=== PATIENT | female | born 1985 | race Caucasian/White ===

== ENCOUNTER 2016-08-05 19:58 | Observation (INO) | payer SELFPAY ==
[2016-08-05 20:40] LABS: BASOPHIL# 0.1 X 10^3uL (0.0-0.1); BASOPHILS 0.7 % (0.0-2.0); EOSINOPHILS 2.2 % (0.0-6.0); EOSINOPHILS# 0.3 X 10^3uL (0.0-0.4); HEMATOCRIT 37.9 % (36.0-48.0); LYMPHOCYTES 25.4 % (20.0-40.0); LYMPHOCYTES# 3.3 X 10^3uL (0.8-3.8); MEAN CELL VOLUME 87.7 fL (84.0-102.0); MEAN CORPUS. HGB CONCENTRATION 34.2 g/dL (32.0-36.0); MEAN PLATELET VOLUME 7.3 fL (7.4-10.4); MONOCYTES 5.6 % (2.0-10.0); MONOCYTES# 0.7 X 10^3uL (0.2-1.0); NEUTROPHILS 66.1 % (54.0-75.0); NEUTROPHILS# 8.5 X 10^3uL (2.6-6.7); PLATELET COUNT 474 X 10^3uL (130-440); RED BLOOD COUNT 4.33 X 10^6uL (4.20-6.10); RED CELL DISTRIBUTION WIDTH 12.3 % (11.5-14.5); WHITE BLOOD COUNT 12.9 X 10^3uL (3.9-10.7)
[2016-08-05 20:49] LABS: ALBUMIN 4.5 g/dL (3.5-5.0); ALKALINE PHOSPHATASE 80 U/L (38-126); ALT 38 U/L (9-52); AST 18 U/L (14-36); BILIRUBIN, DIRECT 0.4 mg/dL (0.0-0.4); BILIRUBIN, TOTAL 0.4 mg/dL (0.2-1.3); BLOOD UREA NITROGEN 12 mg/dL (7-17); CALCIUM 9.4 mg/dL (8.4-10.2); CHLORIDE 104 mmol/L (98-107); CREATININE 0.5 mg/dL (0.5-1.0); EST GLOMERULAR FILTRATION RATE > 60 mL/min; GLUCOSE 131 mg/dL (70-100); LIPASE 28 U/L (23-300); POTASSIUM 3.6 mmol/L (3.5-5.1); SODIUM 138 mmol/L (137-145)
[2016-08-05] MEDS ORDERED: HYDROmorphone HCL 1 MG/ML SYR ONE (20:58)
[2016-08-05] MEDS ORDERED: KETOROLAC TROMETHAMINE 30 MG/ML VIAL ONE (20:58)
[2016-08-05] MEDS ORDERED: ONDANSETRON HCL 4 MG/2 ML VIAL ONE (20:58)
[2016-08-05] MEDS ORDERED: HOME MEDICATION LIST NEEDED 1 EA EACH MISC ONE (22:02)
--- NOTE | 2016-08-05 22:17 | CT REPORT ---
EXAMINATION: CT OF THE ABDOMEN AND PELVIS WITH IV CONTRAST INDICATION: Abdominal pain, right upper quadrant. TECHNIQUE: Transaxial images of the abdomen and pelvis were obtained from the diaphragmatic dome to t he ischial tuberosity according to routine abdomen and pelvis protocol, following the administration of intravenous contrast material, Isovue 370, 100 ml. This examination was performed using automate d exposure control, adjustment of mA or kV according to patient size, and/or use of iterative reconst ruction technique. COMPARISON: None FINDINGS: Liver: The liver appears normal in size, shape, and attenuation without evidence of worrisome lesions on this exam. Patent portal veins. Bile ducts: No intra- or extra-hepatic dilation. Gallbladder: No gallstones or wall thickening. Pancreas: Normal. Spleen: No splenomegaly. Adrenals: Normal adrenal glands. Kidneys/Urinary Bladder: Small subcentimeter hypoattenuating structure in the lower pole of the right kidney is too small to characterize but likely reflects a small cyst. Kidneys otherwise appear nato l without hydronephrosis or obstructive nephrolithiasis. Urinary bladder is thin walled and distende d. Reproductive organs: Uterus and adnexa appear normal. GI tract/Mesentery: Normal appendix. No obstruction. There is a short segment of focal jejunal disten tion in the left upper abdomen with some segments of air-filled nondilated small bowel possibly refle cting enteritis. Vascular: Aorta and IVC appear normal. Peritoneum/retroperitoneum: No free fluid or free air. Lymph Nodes: No significant lymphadenopathy in the abdomen or pelvis. Bones: Bones appear normal without evidence of acute fractures. Superficial Soft Tissue: Normal. Lower chest: The demonstrated lung bases are clear. IMPRESSION: 1. Short segment of focal jejunal distention in the left upper abdomen with some segments of air-tavo led nondilated small bowel possibly reflecting enteritis. 2. No CT evidence of gallbladder wall thickening or cholelithiasis although ultrasound has a higher sensitivity. Final Electronic Signature: This report was electronically signed by Cassius Barton MD on 7 10:14 PM. joanne /
--- NOTE | 2016-08-05 22:57 | ER PHYSICIAN DOCUMENTATION ---
Physician Documentation [facility] Name:Shira Fields Age:30 yrs Sex:Female :1985 Arrival Date:08/05/2016 Time:19:58 Bed3 Private MD: Curtis Mccray Disposition: 08/05/16 22:16 Admit ordered for Ever Mcgee. Preliminary diagnosis is Abdominal Pain, possible Gallstones. - Bed requested for Medical/Surgical. - Condition is Fair. - Problem is new. - Symptoms are unchanged. 23 HR OBS Yes HPI: 08/05 21:04 This 30 yrs old Female presents to ER via Walk In with complaints of Back jm Pain. 21:04 The patient complains of pain in the right mid back. The pain radiates to the RUQ. jm Onset: The symptom(s)/episode began/occurred 1 week(s) ago, and became persistent today. Modifying factors: the symptoms are aggravated by nothing. Associated signs and symptoms: Pertinent negatives: dysuria, fever, nausea. Severity of pain: At its worst the pain was a 8 / 10. The patient has not experienced similar symptoms in the past. The patient has not recently seen a physician. . Historical: - Allergies: No known drug Allergies; - Home Meds: 1. None - PMHx: None; - PSHx: c section; - Tetanus: < 10 years. - Ebola Screening: : Patient negative for fever greater than or equal to 101.5 degrees Fahrenheit, and additional compatible Ebola Virus Disease symptoms. Patient denies exposure to infectious person. Patient denies travel to an Ebola-affected area in the 21 days before illness onset. No symptoms or risks identified at this time. . - Immunization history: Flu Vaccine < 1 year. - Social history: Smoking status: Patient uses tobacco products, current every day smoker. Patient uses marijuana Patient/guardian denies using alcohol. - Code Status:: Full code. ROS: 21:25 Constitutional: Negative for fatigue, fever. jm 21:25 Respiratory: Negative for cough, shortness of breath. 21:25 Abdomen/GI: Positive for abdominal pain. 21:25 Back: Positive for radiated pain. 21:25 : Positive for flank pain, Negative for urinary symptoms. 21:25 Neuro: Negative for headache, numbness. 21:25 All other systems are negative. Exam: 21:27 Constitutional: The patient appears alert, awake, comfortable, obese. 21:29 Eyes: Periorbital structures: appear normal, Conjunctiva: normal. 21:29 ENT: Voice: is normal, Breath odor: is normal. 21:29 Chest/axilla: Inspection: normal, Palpation: is normal. 21:29 Cardiovascular: Rhythm: regular, Pulses: no pulse deficits are appreciated. 21:29 Respiratory: Respirations: normal, Breath sounds: are normal. 21:29 Abdomen/GI: Bowel sounds: normal, Palpation: severe abdominal tenderness, in the right upper quadrant, Indicators: Tovar's sign 21:29 Back: ROM is normal, CVA tenderness, is absent. 21:29 : CVA tenderness, is absent, Bladder: is normal. 21:29 Skin: Exam negative for burn, cellulitis, no rash present. 21:29 Skin: 21:29 Neuro: Exam negative for 21:29 Psych: Behavior/mood is pleasant, cooperative, Affect is calm. Vital Signs: 20:12 BP 133 / 73; Pulse 107; Resp 20; Temp 98.7; Pulse Ox 94% on R/A; Weight 81.65 kg; lb Height 5 ft. 4 in. (162.56 cm); Pain 8/10; 22:28 BP 126 / 67; Pulse 100; Resp 17; Pain 6/10; lb 22:56 BP 128 / 57; Pulse 96; Resp 14; Pain 6/10; lb 20:12 Body Mass Index 30.90 (81.65 kg, 162.56 cm) lb Procedures: 22:07 Ultrasound: Biliary ultrasound performed. Indications: RUQ/epigastric pain, Views heidi obtained: transverse view, Findings: gallstones present, positive Tovar's sign, Impression: cholelithiasis, Limited study because of body habitus. MDM: 20:11 Patient medically screened. 21:33 Differential diagnosis: nephrolithiasis, pyelonephritis, cholecystitis. Data reviewed: heidi vital signs, nurses notes, and as a result, I will discharge patient. Counseling: I had a detailed discussion with the patient and/or guardian regarding: the historical points, exam findings, and any diagnostic results supporting the discharge/admit diagnosis, lab results, radiology results. 22:07 Medication response: The patient's symptoms have improved, Dilaudid. Response to treatment: the patient's symptoms have mildly improved after treatment. Physician consultation: Ever Mcgee MD regarding admission, and will see patient tomorrow. Admission orders: after a detailed discussion of the patient's condition and case, the admit orders are written by me. ED course: CT negative for gallbladder pathology, but showed a possible developing enteritis of the proximal small bowel. US may have showed stones. Pt certainly was yeast distiller on my US. . 22:14 ED course: We will get formal surgical consult w Dr. Mcgee and formal US to confirm jm cholecystitis . 08/05 20:51 Order name: HCG, SERUM; Complete Time: 20:54 EDMS 08/05 20:53 Order name: BASIC METABOLIC PANEL; Complete Time: 20:54 EDMS 08/05 20:53 Order name: HEPATIC PANEL; Complete Time: 20:54 EDMS 08/05 20:53 Order name: LIPASE; Complete Time: 20:54 EDMS 08/05 20:53 Order name: CBC AUTO DIF, MDIF/RMOR IF IND; Complete Time: 20:54 EDMS 08/05 22:19 Order name: CAT SCAN; ABD/PEL W [id number] EDMS 08/05 20:25 Order name: NPO; Complete Time: 20:45 Dispensed Medications: Completed: NS 0.9% 1000 ml IV at bolus once 20:45 Drug: NS 0.9% 1000 ml; Route: IV; Rate: bolus; Site: right antecubital; lb 22:55 Follow up: IV Status: Infusion continued upon admission lb 20:53 Drug: Zofran 4 mg; Route: IVP; Infused Over: 2 mins; Site: right antecubital; lb 22:08 Follow up: Response: Nausea is decreased lb 20:53 Drug: Dilaudid 0.5 mg; Route: IVP; Site: right antecubital; lb 22:08 Follow up: Response: Pain is decreased lb 20:53 Drug: Toradol 30 mg; Route: IVP; Site: right antecubital; lb 22:09 Follow up: Response: Pain is decreased lb Point of Care Testing: Urine Dip: 22:02 pH: 5.5; ; Specific [place]: 1.005; Ketones: Negative; Glucose: Negative; Protein: lb Positive (+); Leukocytes: Negative; Nitrite: Negative ; Blood: Non Hemolyzed Moderate; Bilirubin: Negative ; Urobilinogen: Normal Signatures: Curtis Mcmahon MD MD jm Bollock, Lynda lb
--- NOTE | 2016-08-05 22:57 | ER NURSING DOCUMENTATION ---
Nurse's Notes [facility] Name:Shira Fields Age:30 yrs Sex:Female :1985 Arrival Date:08/05/2016 Time:19:58 Bed3 Private MD: Diagnosis:Abdominal Pain, possible Gallstones Presentation: 08/05 20:09 Presenting complaint: Patient states: right flank pain for 1 week, radiates to right lb abdomen. worse today. Transition of care: Home. Notified ED Physician of Lisandro Davenport notified. 20:09 Acuity: ALEX 3 lb 20:09 Method Of Arrival: Walk In Triage Assessment: 20:11 General: Appears uncomfortable, Behavior is appropriate for age, cooperative. Pain: lb Complains of pain in right low back Pain radiates to right lower quadrant Pain currently is 8 out of 10 on a pain scale. Quality of pain is described as sharp. Musculoskeletal: Circulation, motion, and sensation intact Capillary refill < 3 seconds. Historical: - Allergies: No known drug Allergies; - Home Meds: 1. None - PMHx: None; - PSHx: c section; - Tetanus: < 10 years. - Ebola Screening: : Patient negative for fever greater than or equal to 101.5 degrees Fahrenheit, and additional compatible Ebola Virus Disease symptoms. Patient denies exposure to infectious person. Patient denies travel to an Ebola-affected area in the 21 days before illness onset. No symptoms or risks identified at this time. . - Immunization history: Flu Vaccine < 1 year. - Social history: Smoking status: Patient uses tobacco products, current every day smoker. Patient uses marijuana Patient/guardian denies using alcohol. - Code Status:: Full code. Screenin:13 Infectious Disease Risk None. Abuse screen: Denies threats or abuse. Denies injuries lb from another. Nutritional screening: No deficits noted. Assessment: 20:13 See Triage Assessment done by same RN. Neuro: No deficits noted. lb Vital Signs: 20:12 BP 133 / 73; Pulse 107; Resp 20; Temp 98.7; Pulse Ox 94% on R/A; Weight 81.65 kg; lb Height 5 ft. 4 in. (162.56 cm); Pain 8/10; 22:28 BP 126 / 67; Pulse 100; Resp 17; Pain 6/10; lb 22:56 BP 128 / 57; Pulse 96; Resp 14; Pain 6/10; lb 20:12 Body Mass Index 30.90 (81.65 kg, 162.56 cm) lb ED Course: 20:03 Patient arrived in ED. ma1 20:09 Yenny Kirk is Primary Nurse. lb 20:10 Triage completed. lb 20:11 Curtis Mcmahon MD is Attending Physician. jm 20:13 Valuables Remains with patient Patient has correct armband on for positive lb identification. 20:30 Inserted peripheral IV: 18 gauge in right antecubital area and blood collected. lb 21:[address] ms 21:[address] ms 22:15 Ever Mcgee MD is Admitting Physician. Administered Medications: Completed: NS 0.9% 1000 ml IV at bolus once 20:45 Drug: NS 0.9% 1000 ml; Route: IV; Rate: bolus; Site: right antecubital; lb 22:55 Follow up: IV Status: Infusion continued upon admission lb 20:53 Drug: Zofran 4 mg; Route: IVP; Infused Over: 2 mins; Site: right antecubital; lb 22:08 Follow up: Response: Nausea is decreased lb 20:53 Drug: Dilaudid 0.5 mg; Route: IVP; Site: right antecubital; lb 22:08 Follow up: Response: Pain is decreased lb 20:53 Drug: Toradol 30 mg; Route: IVP; Site: right antecubital; lb 22:09 Follow up: Response: Pain is decreased lb Point of Care Testing: Urine Dip: 22:02 pH: 5.5; ; Specific [place]: 1.005; Ketones: Negative; Glucose: Negative; Protein: lb Positive (+); Leukocytes: Negative; Nitrite: Negative ; Blood: Non Hemolyzed Moderate; Bilirubin: Negative ; Urobilinogen: Normal Intake: 22:55 IV: 1000ml (NS); Total: 1000ml. lb Outcome: 22:16 Decision to Admit by Provider. 22:56 Admitted to Med/surg accompanied by nurse, via stretcher. lb 22:56 Condition: improved 22:56 Report given to Marisa RN 22:56 Discharge Assessment: Patient awake, alert and oriented x 3. No cognitive and/or functional deficits noted. Patient verbalized understanding of disposition instructions. 22:56 Instructed on need to admit 22:56 Patient left the ED. lb Signatures: Curtis Mcmahon MD MD jm Strickland Lydia Yenny Wu Melissa ma1
[2016-08-05] MEDS ORDERED: NORMAL SALINE 1,000 ML IV SCH (23:00)
[2016-08-05 23:30] LABS: URINE APPEARANCE CLEAR; URINE BILIRUBIN NEGATIVE (NEGATIVE); URINE COLOR PINK; URINE GLUCOSE NORMAL (NEGATIVE); URINE KETONE NEGATIVE (NEGATIVE); URINE LEUKOCYTE ESTERASE NEGATIVE (NEGATIVE); URINE NITRITE NEGATIVE (NEGATIVE); URINE PH 5.5 (5-7); URINE PROTEIN 30mg/dL (1+) (NEG - TRACE); URINE SPECIFIC GRAVITY < or = 1.005 (0.001-1.035); URINE SQUAMOUS EPITHELIAL CELL 0-5/hpf (<= 15/hpf); URINE UROBILINOGEN 0.2mg/dL (Normal) (NEG-1mg/dL)
[2016-08-05 23:31] LABS: URINE BLOOD 250 Ery/uL (3+) (NEGATIVE); URINE MUCUS UP TO 25%/lpf (Up to 25%)
[2016-08-06] MEDS: HYDROmorphone HCL 1 MG/ML SYR IV PRN ×4 (00:22→08:58)
[2016-08-06] MEDS: ACETAMINOPHEN 325 MG TABLET PO PRN ×2 (04:30→10:49)
[2016-08-06 05:47] LABS: ALBUMIN 3.7 g/dL (3.5-5.0); ALKALINE PHOSPHATASE 69 U/L (38-126); ALT 34 U/L (9-52); AST 19 U/L (14-36); BILIRUBIN, DIRECT 0.1 mg/dL (0.0-0.4); BILIRUBIN, TOTAL 0.5 mg/dL (0.2-1.3); BLOOD UREA NITROGEN 11 mg/dL (7-17); CALCIUM 8.6 mg/dL (8.4-10.2); CHLORIDE 107 mmol/L (98-107); CREATININE 0.5 mg/dL (0.5-1.0); EST GLOMERULAR FILTRATION RATE > 60 mL/min; GLUCOSE 99 mg/dL (70-100); POTASSIUM 3.8 mmol/L (3.5-5.1); SODIUM 138 mmol/L (137-145); TOTAL PROTEIN 6.9 g/dL (6.3-8.2)
[2016-08-06 05:51] LABS: BASOPHILS 0.2 % (0.0-2.0); EOSINOPHILS 1.8 % (0.0-6.0); EOSINOPHILS# 0.2 X 10^3uL (0.0-0.4); HEMATOCRIT 34.3 % (36.0-48.0); HEMOGLOBIN 11.6 g/dL (12.0-16.0); LYMPHOCYTES 18.8 % (20.0-40.0); LYMPHOCYTES# 2.1 X 10^3uL (0.8-3.8); MEAN CELL VOLUME 87.2 fL (84.0-102.0); MEAN CORPUS. HGB CONCENTRATION 33.7 g/dL (32.0-36.0); MEAN CORPUSCULAR HEMOGLOBIN 29.4 pg (29.0-35.0); MEAN PLATELET VOLUME 7.1 fL (7.4-10.4); MONOCYTES 7.7 % (2.0-10.0); MONOCYTES# 0.9 X 10^3uL (0.2-1.0); NEUTROPHILS 71.5 % (54.0-75.0); PLATELET COUNT 434 X 10^3uL (130-440); RED BLOOD COUNT 3.94 X 10^6uL (4.20-6.10); WHITE BLOOD COUNT 11.2 X 10^3uL (3.9-10.7)
[2016-08-06] MEDS ORDERED: ONDANSETRON HCL 4 MG/2 ML VIAL IV PRN (07:48)
--- NOTE | 2016-08-06 09:50 | US REPORT ---
EXAM:US ABD LIMITED [id number] INDICATION: Abdominal pain. Follow-up to CT. COMPARISON:CT abdomen and pelvis dated 08/05/2016. TECHNIQUE:A right upper quadrant scan was performed. FINDINGS: The liver is normal in size and echogenicity. There is no intrahepatic ductal dilatation an d the common bile duct measures 5 mm. The gallbladder appears normal and without stones or wall thick ening, but the patient does exhibit focal tenderness over the gallbladder (positive Tovar's sign). V isualized portions of the pancreas and inferior vena cava are unremarkable and the aorta is normal in caliber. The right kidney measures 10.9 cm in length and shows no mass or hydronephrosis. There is n o ascites. IMPRESSION: 1. Normal sonographic appearance of the gallbladder, with no stones or wall thickening. Patient does exhibit focal sonographic tenderness over the gallbladder (sonographic Tovar's sign). A calculus cho lecystitis is not excluded. If clinically indicated, nuclear medicine HIDA scan could be performed fo r further evaluation. 2. Of the right upper quadrant structures appear unremarkable. No bile duct dilatation. Final Electronic Signature: This report was electronically signed by Georges Kumar MD on 08/06/2016 9:48 AM. lavelle /
[2016-08-06] MEDS ORDERED: CYCLOBENZAPRINE HCL 10 MG TABLET PO PRN (10:19)
[2016-08-06] MEDS: HYDROmorphone HCL 2 MG TABLET PO PRN ×4 (10:43→23:30)
[2016-08-06] MEDS: LORazepam 0.5 MG TABLET PO PRN (10:44)
--- NOTE | 2016-08-06 14:29 | HISTORY & PHYSICAL ---
DATE OF ADMISSION: 08/05/16 CHIEF COMPLAINT: Right upper quadrant pain. HISTORY OF PRESENT ILLNESS: This is a 30-year-old female who presented to the emergency room last evening with right flank and right upper quadrant pain. The pain was most notable in the right back and radiated into her right upper quadrant. She also noted some right shoulder discomfort. She said she had this for about a week but in the last day it had become more severe. Overnight she still noted very little relief with the IV Dilaudid given for the pain. She has never had a pain of this nature in the past. She has no family history of gallbladder disease. She did have an ulcer in the past which I believe was duodenal. She said this was noted with an endoscopy. This was when she lived in [place] and was treated with oral medications. She says the pain is difficult in character. She has some nausea with this. She denied fevers or chills. She is not sure if she is hungry or not. PAST MEDICAL AND SURGICAL HISTORY 1. She has undergone a section in the past. 2. Previous hospital admissions were for a kidney infection. 3. She has been worked up in the past for ulcer with an EGD. CURRENT MEDICATIONS: None. ALLERGIES TO MEDICATIONS: None. SOCIAL HISTORY: She works in the [facility] area having recently moved here from [place]. She says she does smoke cigarettes about a half pack a day. She does smoke marijuana although did not claim to smoke it on a daily basis. REVIEW OF SYSTEMS GENERAL: She had felt fine prior to this until the onset of this right flank pain. PULMONARY: She does smoke. She denies chest pain. She denies shortness of breath or cough. CARDIAC: She denies previous cardiac history. She denies chest discomfort. GI: She has had the ulcer in the past. She denies chronic diarrhea or constipation. : She did have one hospital admission for a kidney infection in the past. SMOKE INSPECTOR: She has undergone one section in the past. NEUROLOGIC: No history of seizure or stroke. ENDOCRINE: Denies diabetes or thyroid disorder. PHYSICAL EXAMINATION VITAL SIGNS: Temperature 36.7, blood pressure 97/44, pulse 73. She was 97% saturated on room air. She rates her pain at a 7. GENERAL: In her room she is tearful. She is a slightly obese female who does not appear toxic otherwise. NECK: Full. No thyroid nodularity or lymphadenopathy were noted. HEART: Regular rate and rhythm. LUNGS: Clear with poor inspiratory effort secondary to discomfort. ABDOMEN: Has a well healed Pfannenstiel incision. Bowel sounds are normoactive. She is an obese individual. The abdomen is soft. She does have tenderness in the right upper quadrant to palpation. She did not have rebound or guarding tenderness noted. EXTREMITIES: Warm. Well perfused. PELVIC/RECTAL: Deferred. LABORATORY DATA: Show white count this morning is 11.2, hemoglobin 11.6, hematocrit 34.3. Chemistries are all within normal range. test last night was negative. Her lipase is negative. IMAGING: CT scan of the abdominal and pelvis showed no evidence of right upper quadrant abnormalities. There was question of some small bowel dilation and left upper quadrant and question of enteritis was raised. Her ultrasound shows no abnormalities in the right upper quadrant. There was no gallstones noted. No gallbladder wall thickening noted. IMPRESSION: Right upper quadrant pain of unknown etiology. PLAN: The patient does have a previous history of peptic ulcer disease so will start her on PPIs. There is a probable remote history of this being acalculous cholecystitis, but at this time I do not think transfer for HIDA scan is necessary. There was no wall thickening, no fluid around the gallbladder on either study. MTDD
[2016-08-06] MEDS: CEFAZOLIN SODIUM 1 GM in NORMAL SALINE MINI-BAG+ 100 ML IV SCH ×2 (14:51→20:44)
[2016-08-06] MEDS: PANTOPRAZOLE 40 MG TABLET PO SCH (18:21)
[2016-08-07] MEDS: ACETAMINOPHEN 325 MG TABLET PO PRN ×2 (00:52→20:17)
[2016-08-07] MEDS: LORazepam 0.5 MG TABLET PO PRN ×4 (00:52→23:41)
[2016-08-07] MEDS: PANTOPRAZOLE 40 MG TABLET PO SCH ×2 (06:20→17:34)
[2016-08-07] MEDS: CEFAZOLIN SODIUM 1 GM in NORMAL SALINE MINI-BAG+ 100 ML IV SCH ×3 (06:23→21:18)
[2016-08-07] MEDS ORDERED: CEFAZOLIN SODIUM 1 GM/10 ML VIAL ONE (06:29)
[2016-08-07] MEDS ORDERED: NORMAL SALINE MINI-BAG+ 100 ML IV ONE (06:32)
[2016-08-07] MEDS: HYDROmorphone HCL 2 MG TABLET PO PRN ×5 (06:41→23:40)
[2016-08-07] MEDS ORDERED: MAG-AL PLUS XS SUSP 30 ML UDC ONE (11:44)
[2016-08-07] MEDS ORDERED: PHENOBARB/HYOSCY/ATROPINE/SCOP 16.2 MG/5 ML SYR ONE (11:45)
[2016-08-07] MEDS ORDERED: LIDOCAINE VISCOUS 2% 15 ML UDC ONE (11:45)
--- NOTE | 2016-08-07 11:49 | PROGRESS NOTE: IM SOAP ---
IM: PN Subjective Interval history: c/o 8/10 RUQ abd pain that improves with Dilaudid down to 2/10 pain. No F/C/N/V /D/C/melena/hematochezia/dysuria/vag discharge. Normal labs, ultrasound and CT scan. Consider HIDA. Hx duodenal ulcer, now on Protonix. Urine culture pending, on Ancef. No suprapubic or flank pain. Pt is anxious, responsive to lorazepam. IM: PN Objective Exam - I&O/Vital Signs I&O: Intake & Output 08/06/16 08/07/16 08/07/16 21:59 05:59 13:59 Intake Total 840 300 Output Total 1100 800 Balance -260 -500 Intake: Oral 840 300 Output: Urine 1100 800 Other: Urine Appearance Cloudy Clear Sediment Urine Color Light Tiff Yellow Stool Size Small Voiding Method Toilet Toilet # Voids 3 # Bowel Movements 1 Vital Signs: Last Vital Signs Temp 36.9 C 08/07/16 11:00 Pulse 92 H 08/07/16 11:00 Resp 14 08/07/16 11:00 BP 117/63 08/07/16 11:00 Pulse Ox 96 08/07/16 11:00 Oxygen Flow Rate 1 Oxygen Delivery Method Room Air - Respiratory Respiratory exam: Present: clear. Absent: rales - Cardiovascular Cardiovascular exam: Present: RRR. Absent: systolic murmur - GI/Abdominal GI/Abdominal exam: Present: soft, tenderness Additional comments: mod RUQ and LLQ abd tenderness with some guarding on very deep palpation, but no rebound tenderness. No HSM, masses. Normal BS. - Extremities Exam Extremities exam: Absent: edema - Lab Labs: Laboratory Last Values WBC 11.2 X 10^3uL (3.9-10.7) H 08/06/16 05:10 RBC 3.94 X 10^6uL (4.20-6.10) L 08/06/16 05:10 Hgb 11.6 g/dL (12.0-16.0) L 08/06/16 05:10 Hct 34.3 % (36.0-48.0) L 08/06/16 05:10 MCV 87.2 fL (84.0-102.0) 08/06/16 05:10 MCH 29.4 pg (29.0-35.0) 08/06/16 05:10 MCHC 33.7 g/dL (32.0-36.0) 08/06/16 05:10 RDW 12.0 % (11.5-14.5) 08/06/16 05:10 Plt Count 434 X 10^3uL (130-440) 08/06/16 05:10 MPV 7.1 fL (7.4-10.4) L 08/06/16 05:10 Neutrophils % 71.5 % (54.0-75.0) 08/06/16 05:10 Lymphocytes % 18.8 % (20.0-40.0) L 08/06/16 05:10 Eosinophils % 1.8 % (0.0-6.0) 08/06/16 05:10 Basophils % 0.2 % (0.0-2.0) 08/06/16 05:10 Neutrophils # 8.0 X 10^3uL (2.6-6.7) H 08/06/16 05:10 Lymphocytes # 2.1 X 10^3uL (0.8-3.8) 08/06/16 05:10 Monocytes 7.7 % (2.0-10.0) 08/06/16 05:10 Monocytes # 0.9 X 10^3uL (0.2-1.0) 08/06/16 05:10 Eosinophils # 0.2 X 10^3uL (0.0-0.4) 08/06/16 05:10 Basophils # 0.0 X 10^3uL (0.0-0.1) 08/06/16 05:10 Sodium 138 mmol/L (137-145) 08/06/16 05:10 Potassium 3.8 mmol/L (3.5-5.1) 08/06/16 05:10 Chloride 107 mmol/L (98-107) 08/06/16 05:10 Carbon Dioxide 23 mmol/L (22-30) 08/06/16 05:10 BUN 11 mg/dL (7-17) 08/06/16 05:10 Creatinine 0.5 mg/dL (0.5-1.0) 08/06/16 05:10 GFR Calculation > 60 mL/min 08/06/16 05:10 Glucose 99 mg/dL (70-100) 08/06/16 05:10 Calcium 8.6 mg/dL (8.4-10.2) 08/06/16 05:10 Total Bilirubin 0.5 mg/dL (0.2-1.3) 08/06/16 05:10 Direct Bilirubin 0.1 mg/dL (0.0-0.4) 08/06/16 05:10 AST 19 U/L (14-36) 08/06/16 05:10 ALT 34 U/L (9-52) 08/06/16 05:10 Alkaline Phosphatase 69 U/L (38-126) 08/06/16 05:10 Total Protein 6.9 g/dL (6.3-8.2) 08/06/16 05:10 Albumin 3.7 g/dL (3.5-5.0) 08/06/16 05:10 Lipase 28 U/L (23-300) 08/05/16 20:25 Serum , Qual Negative 08/05/16 20:25 Urine Color [place] A 08/05/16 21:30 Urine Appearance Clear 08/05/16 21:30 Urine pH 5.5 (5-7) 08/05/16 21:30 Ur Specific [place] < or = 1.005 (0.001-1.035) 08/05/16 21:30 Urine Protein 30mg/dl (1+) (NEG - TRACE) A 08/05/16 21:30 Urine Ketones Negative (NEGATIVE) 08/05/16 21:30 Urine Blood 250 david/ul (3+) (NEGATIVE) A 08/05/16 21:30 Urine Nitrate Negative (NEGATIVE) 08/05/16 21:30 Urine Bilirubin Negative (NEGATIVE) 08/05/16 21:30 Urine Urobilinogen 0.2mg/dl (normal) (NEG-1mg/dL) 08/05/16 21:30 Ur Leukocyte Esterase Negative (NEGATIVE) 08/05/16 21:30 Urine RBC 5-10/hpf (0-5/hpf) A 08/05/16 21:30 Urine WBC 5-10/hpf (0-4/hpf) A 08/05/16 21:30 Ur Squamous Epith Cells 0-5/hpf (<= 15/hpf) 08/05/16 21:30 Urine Bacteria 10-20 organisms/hpf (<10/hpf) A 08/05/16 21:30 Urine Mucus Up to 25%/lpf (Up to 25%) 08/05/16 21:30 Urine Glucose Normal (NEGATIVE) 08/05/16 21:30 Assessment and Plan - Date of Encounter Date of Encounter: 08/07/16 (1) RUQ abdominal pain Status: Acute Assessment and plan: Diff dx includes duodenal/peptic ulcer disease, acalculous cholecystitis, pyelonephritis, musculoskeletal, etc. Abd pain appears disproportional and at times pt appears completely comfortable per nursing. Trial of green grasshopper (maalox, visc lidocaine, antispasmodic) Continue protonix Consider HIDA AM labs adjusted dose of lorazepam and dilaudid. Reassess in AM Current Visit: Yes - Time Spent With Patient Total time spent with greater than 50% in coordination of care (as documented) at patient's floor/unit and/or counseling patient: Quality Questions - VTE Prophylaxis Assessment VTE Present on Admission?: No Patient at risk for venous thromboembolism?: No VTE Risk Level: Very Low Risk VTE Medical Contraindication: Treatment not indicated
[2016-08-08] MEDS: CEFAZOLIN SODIUM 1 GM in NORMAL SALINE MINI-BAG+ 100 ML IV SCH (05:10)
[2016-08-08] MEDS: HYDROmorphone HCL 2 MG TABLET PO PRN ×2 (05:25→10:26)
[2016-08-08] MEDS: LORazepam 0.5 MG TABLET PO PRN ×2 (06:17→12:11)
[2016-08-08] MEDS: ACETAMINOPHEN 325 MG TABLET PO PRN ×2 (06:17→12:11)
[2016-08-08] MEDS: PANTOPRAZOLE 40 MG TABLET PO SCH (06:37)
[2016-08-08 06:56] VITALS: RESP 18
[2016-08-08 07:13] LABS: BASOPHIL# 0.1 X 10^3uL (0.0-0.1); BASOPHILS 1.2 % (0.0-2.0); EOSINOPHILS 1.6 % (0.0-6.0); EOSINOPHILS# 0.2 X 10^3uL (0.0-0.4); HEMOGLOBIN 11.8 g/dL (12.0-16.0); MEAN CORPUS. HGB CONCENTRATION 33.8 g/dL (32.0-36.0); MEAN CORPUSCULAR HEMOGLOBIN 29.4 pg (29.0-35.0); MEAN PLATELET VOLUME 7.3 fL (7.4-10.4); MONOCYTES 5.4 % (2.0-10.0); MONOCYTES# 0.6 X 10^3uL (0.2-1.0); NEUTROPHILS 73.8 % (54.0-75.0); NEUTROPHILS# 8.5 X 10^3uL (2.6-6.7); PLATELET COUNT 478 X 10^3uL (130-440); RED BLOOD COUNT 4.02 X 10^6uL (4.20-6.10); RED CELL DISTRIBUTION WIDTH 11.7 % (11.5-14.5); WHITE BLOOD COUNT 11.4 X 10^3uL (3.9-10.7)
[2016-08-08 07:33] LABS: A/G RATIO 1.2; ALBUMIN 4.2 g/dL (3.5-5.0); ALKALINE PHOSPHATASE 69 U/L (38-126); ALT 26 U/L (9-52); AST 23 U/L (14-36); BILIRUBIN, TOTAL 0.8 mg/dL (0.2-1.3); BLOOD UREA NITROGEN 7 mg/dL (7-17); CALCIUM 9.2 mg/dL (8.4-10.2); CHLORIDE 104 mmol/L (98-107); CREATININE 0.5 mg/dL (0.5-1.0); EST GLOMERULAR FILTRATION RATE > 60 mL/min; GLUCOSE 141 mg/dL (70-100); SODIUM 138 mmol/L (137-145); TOTAL PROTEIN 7.8 g/dL (6.3-8.2)
[2016-08-08 07:38] LABS: AMYLASE < 30 U/L (30-110)
[2016-08-08 11:28] VITALS: BP 117/57; PULSE 102; TEMP 98.2; O2SAT 92
--- NOTE | 2016-08-08 13:26 | PROGRESS NOTE: IM SOAP ---
IM: PN Subjective Interval history: Pt had improvement in symptoms with combination Maalox, viscous lidocaine and antispasmodic. No c/o severe RUQ abd pain and right flank pain, with lesser pain elsewhere in abdomen. No F/C/N/V/D/C/melena/hematochezia/dysuria/vag discharge. Normal food/fluid intake. Normal labs, ultrasound and CT scan. Consider HIDA and EGD if symptoms persist. Hx duodenal ulcer, now on Protonix. Pt aware that nonbleeding duodenal ulcer is most likely etiology for presentation UTI e.coli sensitive to all antibiotics. Pt is anxious, teary, poor eye contact, depressed affect. Complaining of poorly controlled pain, but I declined her request for stronger opioids and will transition to short outpt course of Tramadol while waiting for Protonix to kick in. Moved to from [place]. Hx of anxiety/depression meds in past. She is worried that she has a kidney problem. Feels that RUQ abd pain much worse than last time that she had duodenal ulcer; she is surprised that she is not doing better yet after 2 days of Protonix although she was previously informed that it takes about 4 days for Protonix to kick in. IM: PN Objective Exam - I&O/Vital Signs I&O: Intake & Output 08/07/16 08/08/16 08/08/16 21:59 05:59 13:59 Intake Total 1850 560 Output Total 1250 400 Balance 600 160 Intake: IV 100 200 Right Antecubital 100 200 Oral 1750 360 Output: Urine 1250 400 Other: Urine Appearance Clear Clear Clear Urine Color Light Tiff Light Tiff Light Tiff Stool Size Small Small Voiding Method Toilet Toilet Toilet # Voids 1 Vital Signs: Last Vital Signs Temp 36.8 C 08/08/16 11:00 Pulse 102 H 08/08/16 11:00 Resp 18 08/08/16 11:00 BP 117/57 08/08/16 11:00 Pulse Ox 92 08/08/16 11:00 Oxygen Flow Rate 1 Oxygen Delivery Method Room Air - GI/Abdominal GI/Abdominal exam: Present: soft, tenderness. Absent: organomegaly Additional comments: mild to mod RUQ without guarding or rebound tenderness. also mild tenderness over epigastrium, LUQ and LLQ, without guarding. - Extremities Exam Extremities exam: Absent: edema - Back Exam Back exam: Present: other (Pt c/o pain in kidneys when I purposely mildly pounded over R SI joint, but she c/o no pain over R kidney. No lumbar muscle pain on palpation.). Absent: CVA tenderness (L), CVA tenderness (R) - Lab Labs: Laboratory Last Values WBC 11.4 X 10^3uL (3.9-10.7) H 08/08/16 06:50 RBC 4.02 X 10^6uL (4.20-6.10) L 08/08/16 06:50 Hgb 11.8 g/dL (12.0-16.0) L 08/08/16 06:50 Hct 35.0 % (36.0-48.0) L 08/08/16 06:50 MCV 87.0 fL (84.0-102.0) 08/08/16 06:50 MCH 29.4 pg (29.0-35.0) 08/08/16 06:50 MCHC 33.8 g/dL (32.0-36.0) 08/08/16 06:50 RDW 11.7 % (11.5-14.5) 08/08/16 06:50 Plt Count 478 X 10^3uL (130-440) H 08/08/16 06:50 MPV 7.3 fL (7.4-10.4) L 08/08/16 06:50 Neutrophils % 73.8 % (54.0-75.0) 08/08/16 06:50 Lymphocytes % 18.0 % (20.0-40.0) L 08/08/16 06:50 Eosinophils % 1.6 % (0.0-6.0) 08/08/16 06:50 Basophils % 1.2 % (0.0-2.0) 08/08/16 06:50 Neutrophils # 8.5 X 10^3uL (2.6-6.7) H 08/08/16 06:50 Lymphocytes # 2.0 X 10^3uL (0.8-3.8) 08/08/16 06:50 Monocytes 5.4 % (2.0-10.0) 08/08/16 06:50 Monocytes # 0.6 X 10^3uL (0.2-1.0) 08/08/16 06:50 Eosinophils # 0.2 X 10^3uL (0.0-0.4) 08/08/16 06:50 Basophils # 0.1 X 10^3uL (0.0-0.1) 08/08/16 06:50 Sodium 138 mmol/L (137-145) 08/08/16 06:50 Potassium 4.0 mmol/L (3.5-5.1) 08/08/16 06:50 Chloride 104 mmol/L (98-107) 08/08/16 06:50 Carbon Dioxide 21 mmol/L (22-30) L 08/08/16 06:50 BUN 7 mg/dL (7-17) 08/08/16 06:50 Creatinine 0.5 mg/dL (0.5-1.0) 08/08/16 06:50 GFR Calculation > 60 mL/min 08/08/16 06:50 Glucose 141 mg/dL (70-100) H 08/08/16 06:50 Calcium 9.2 mg/dL (8.4-10.2) 08/08/16 06:50 Total Bilirubin 0.8 mg/dL (0.2-1.3) D 08/08/16 06:50 Direct Bilirubin 0.1 mg/dL (0.0-0.4) 08/06/16 05:10 AST 23 U/L (14-36) 08/08/16 06:50 ALT 26 U/L (9-52) 08/08/16 06:50 Alkaline Phosphatase 69 U/L (38-126) 08/08/16 06:50 Total Protein 7.8 g/dL (6.3-8.2) 08/08/16 06:50 Albumin 4.2 g/dL (3.5-5.0) 08/08/16 06:50 Albumin/Globulin Ratio 1.2 08/08/16 06:50 Amylase < 30 U/L (30-110) L 08/08/16 06:50 Lipase 28 U/L (23-300) 08/05/16 20:25 Serum , Qual Negative 08/05/16 20:25 Urine Color [place] A 08/05/16 21:30 Urine Appearance Clear 08/05/16 21:30 Urine pH 5.5 (5-7) 08/05/16 21:30 Ur Specific [place] < or = 1.005 (0.001-1.035) 08/05/16 21:30 Urine Protein 30mg/dl (1+) (NEG - TRACE) A 08/05/16 21:30 Urine Ketones Negative (NEGATIVE) 08/05/16 21:30 Urine Blood 250 david/ul (3+) (NEGATIVE) A 08/05/16 21:30 Urine Nitrate Negative (NEGATIVE) 08/05/16 21:30 Urine Bilirubin Negative (NEGATIVE) 08/05/16 21:30 Urine Urobilinogen 0.2mg/dl (normal) (NEG-1mg/dL) 08/05/16 21:30 Ur Leukocyte Esterase Negative (NEGATIVE) 08/05/16 21:30 Urine RBC 5-10/hpf (0-5/hpf) A 08/05/16 21:30 Urine WBC 5-10/hpf (0-4/hpf) A 08/05/16 21:30 Ur Squamous Epith Cells 0-5/hpf (<= 15/hpf) 08/05/16 21:30 Urine Bacteria 10-20 organisms/hpf (<10/hpf) A 08/05/16 21:30 Urine Mucus Up to 25%/lpf (Up to 25%) 08/05/16 21:30 Urine Glucose Normal (NEGATIVE) 08/05/16 21:30 Assessment and Plan - Date of Encounter Date of Encounter: 08/08/16 (1) RUQ abdominal pain Status: Acute Assessment and plan: Consistent with duodenal ulcer, nonbleeding. Diff dx includes acalculous cholecystitis, pyelonephritis (doubt), musculoskeletal, etc. c/o Abd pain appears disproportional and at times pt appears completely comfortable per nursing. No pain over right kidney on percussion. Trial of maalox, visc lidocaine, antispasmodic resulted in short period of improvement of symptoms, again consistent with duodenal ulcer. Continue protonix Consider HIDA and EGD on outpt basis. Recommended psych eval/meds on outpt basis since pt appears depressed/anxious. Declined pt's request for stronger opioids and she was mad that I cut back on opioids yesterday. D/C Home Current Visit: Yes (2) Duodenal ulcer Status: Acute Assessment and plan: H. pylori lab pending Protonix 80mg po bid x 2 months. Current Visit: Yes (3) UTI (urinary tract infection) Status: Acute Assessment and plan: Change Ancef to outpt Bactrim e.coli sensitive to all antibiotics Current Visit: Yes - Time Spent With Patient Total time spent with greater than 50% in coordination of care (as documented) at patient's floor/unit and/or counseling patient:
--- NOTE | 2016-08-08 20:14 | DISCHARGE SUMMARY ---
DATE OF ADMISSION: 08/05/16 DATE OF DISCHARGE: 08/08/16 ATTENDING PHYSICIAN: Angel Sierra MD DIAGNOSES 1. Duodenal ulcer, nonbleeding. 2. Right upper quadrant abdominal pain secondary to #1. 3. Urinary tract infection. HISTORY OF PRESENT ILLNESS: This is a 30-year-old female with a history of duodenal ulcer, who presented to the emergency room with right upper quadrant pain and right flank pain. The pain started in the right flank and radiated into her right upper quadrant and right shoulder regions. It had been present for about a week, but had worsened in the last day prior to admission, and became quite severe. She had very little relief with IV Dilaudid. Please see previously dictated history and physical per Dr. Mcgee for further details. HOSPITAL COURSE: Patient was admitted with right upper quadrant abdominal pain. Abdominal and pelvic CT scan showed no evidence of right upper quadrant pathology with no problems in the liver, bile ducts, gallbladder, pancreas, spleen, adrenals, kidneys, uterus or adnexa. Normal appendix. There was a short segment of focal jejunal distention in the left upper abdomen, possibly reflecting enteritis, but this would not explain the right upper quadrant abdominal symptoms. Also, patient had a right upper quadrant abdominal ultrasound which showed a normal gallbladder with no evidence of gallstones or wall thickening and normal bile ducts. In addition, lab work was unremarkable except for a borderline elevated white blood cell count 12.9 on admission with normal differential, which quickly improved to 11.4 by the time of discharge. No evidence of elevated liver function tests, amylase or lipase elevation, and there was a negative urine test. Kidney function was normal. Urinalysis was mildly abnormal and urine culture did grow E. Coli sensitive to all antibiotics. Patient had no further evidence of nausea, vomiting, diarrhea, constipation, melena, hematochezia, dysuria or vaginal discharge. She was able to keep p.o. fluids and food down. We did give her a GI cocktail with Maalox, viscous Lidocaine and an antispasmodic, which resulted in improvement in right upper quadrant abdominal symptoms for a short period. Patient had a rather depressed and anxious affect, teary with poor eye contact. I did suggest that she may benefit from restarting psych medications and counseling as she did in [place]. She was complaining of extremely poor pain control, but I declined her request for stronger opioids, and she was unhappy with me for transitioning to lower doses of opioids. Patient was placed on Protonix 80 mg p.o. b.i.d. but claimed that she did not have much improvement in right upper quadrant symptoms for the 2 days that she was on this. She is aware that it might take at least 4 days before she starts seeing some improvement. H. Pylori antibody blood test is pending. DISCHARGE INSTRUCTIONS: Patient may participate in activities as able. She may require an additional 1-2 days off of work while she is waiting for the Protonix to kick in. She was advised to avoid caffeine, alcohol, acidic and spicy foods, as well as to avoid nicotine and marijuana, all of which can lead to peptic ulcer disease. She may return to the Emergency Room if she begins to worsen, at which time she may require re-evaluation and referral for EGD and HIDA scan at a [facility] facility, in that these resources are not available here. She may also benefit from gastroenterology consultation. She will have a follow up appointment with surgeon Dr. Mcgee in 3-4 days, at which time EGD, HIDA scan, and/or gastroenterology consultation can be considered if patient is showing no improvement. DISCHARGE MEDICATIONS Bactrim DS 1 tab p.o. b.i.d. #14. Protonix 80 mg p.o. b.i.d. #120. Tramadol 50 mg p.o. q.i.d. PRN severe pain #15, no refill. Copies to: Dr. Everardo LOWERY
== END 2016-08-08 13:45 | disposition home or self-care (01) ==
LOC: ER 19:58 → IN 22:27
PROVIDERS: ADMIT Surgery; ATTEND Surgery
DX: K26.7 Chronic duodenal ulcer without hemorrhage or perforation (principal); R10.11 Right upper quadrant pain; N39.0 Urinary tract infection, site not specified; B96.20 Unspecified Escherichia coli [E. coli] as the cause of diseases classified elsewhere; Z72.0 Tobacco use
CPT/HCPCS: 36415; 74177; 76705; 80048; 80053; 80076; 81001; 82150; 83690; 84703; 85025; 86677; 87077; 87086; 87186; 96361; 96366; 96374; 96375; 96376; 99285; G0378; J0690; J1170; J1885; J2405; J7030